=== PATIENT | female | born 1995 | race Caucasian/White ===

== ENCOUNTER → 2017-06-17 | Outpatient (CLI) | payer OTHER ==
[~2017-06-17] MED LIST: ACET500 PO; CRUTCH3 USE; HYDACE5 PO; HYDACE5325 PO; LOPE2C PO; NAPR375 PO; Zofran8 MG PO
== END ==
LOC: LAB SHORT 14:39 → LAB 14:39
PROVIDERS: Nurse Practitioner Family
DX: Z12.4 Encounter for screening for malignant neoplasm of cervix (principal)
CPT/HCPCS: G0123

== ENCOUNTER 2024-10-25 07:39 | Emergency (ER) | payer SELFPAY ==
[~2024-10-25] VITALS: Ht 167.6 cm; Wt 87.5 kg
[2024-10-25 07:58] VITALS: BP 139/79
[2024-10-25] MEDS ORDERED: PRED20 PO (08:32)
== END 2024-10-25 08:40 | disposition home or self-care (01) ==
LOC: ER 07:39
DX: L50.0 Allergic urticaria (principal); Z79.899 Other long term (current) drug therapy; J45.909 Unspecified asthma, uncomplicated
CPT/HCPCS: 99284; A9270; J7512